=== PATIENT | male | born 1960 | race Caucasian/White ===

== ENCOUNTER 2022-06-25 11:00 | Outpatient (RCR) | payer OTHER, SELFPAY ==
[2022-06-25 11:13] VITALS: BP 120/73; PULSE 81; RESP 16; TEMP 36.7; O2SAT 100
[2022-06-25 11:24] VITALS: BP 120/73; PULSE 81; RESP 16; TEMP 36.7; O2SAT 100
[2022-06-25 11:42] VITALS: BP 115/69; PULSE 83; RESP 16; TEMP 36.7; O2SAT 99
[2022-06-25] MEDS: 0.9 % SODIUM CHLORIDE 250 ml IV (11:51)
[2022-06-25] MEDS: SODIUM CHLORIDE 0.9 % (FLUSH) 10 ML SYRINGE IVF ×2 (11:51→14:11)
[2022-06-25 12:27] VITALS: BP 103/62; RESP 16; TEMP 36.7; O2SAT 100
[2022-06-25 13:44] VITALS: BP 107/60; PULSE 81; RESP 20; TEMP 36.5; O2SAT 99
[2022-06-25] MEDS: HEPARIN 500 UNIT/5 ML SYRINGE IVF (14:11)
[2022-06-25 14:16] VITALS: BP 111/62; PULSE 82; RESP 16; TEMP 36.9; O2SAT 99
== END 2022-12-21 23:59 | disposition home or self-care (01) ==
LOC: CCIC 11:00
PROVIDERS: PCP Student in an Organized Health Care Education/Training Program; Visit Provider Clinical Nurse Specialist
DX: D64.9 Anemia, unspecified (principal)
CPT/HCPCS: 36415; 36430; 36591; 86850; 86900; 86901; 86922; J1642; J7050; P9016